=== PATIENT | male | born 2000 | race Caucasian/White ===

== ENCOUNTER 2021-03-20 13:29 | Emergency (ER) | payer OTHER, SELFPAY ==
--- NOTE | 2021-03-20 13:34 | ED.SKABFB ---
HPI - Skin/Abscess/Foreign Bdy General Chief complaint: Skin/Abscess/Foreign Body Stated complaint: abd rash Time Seen by Provider: 03/20/21 13:34 Source: patient and RN notes reviewed History of Present Illness HPI narrative: Patient is a 20-year-old male who presents the urgent care with complaints of a rash to the abdomen. Patient states that a couple weeks ago he noticed a spot on his right wrist. Patient states he has been using an antifungal to the areas with no resolution. Patient states that it does itch but denies of any other symptoms. No other acute complaints. No acute distress noted. Patient aware of the plan of care. Some parts of this dictation were generated by voice recognition software and may contain typographical and/or grammatical inaccuracies. Related Data Allergies Allergy/AdvReac Type Severity Reaction Status Date / Time Sulfa (Sulfonamide Allergy Rash Verified 03/20/21 13:40 Antibiotics) Review of Systems Review of Systems: CONSTITUTIONAL: Denies fever, chills, or sweats. EYES: Denies visual changes, redness, or discharge. ENT: Denies rhinorrhea, congestion, sore throat, or otalgia. CARDIOVASCULAR: Denies chest pain, palpitations, or edema. RESPIRATORY: Denies cough or dyspnea. GASTROINTESTINAL: Denies abdominal pain, nausea, vomiting, or diarrhea. GENITOURINARY: Denies dysuria or hematuria. SKIN: Reports of an itchy rash to the abdomen MUSCULOSKELETAL: Denies back pain, joint pain, or myalgia. NEUROLOGIC: Denies headache, numbness, or weakness. All other systems reviewed are negative, except as documented in HPI. PMFSH Comments At the time of my signature, I reviewed and agree with the nursing past medical, surgical, social, and family history. There is no relevant family history pertinent to the patient complaint. Exam Narrative: GENERAL: This is a well-nourished, well-developed patient, in no apparent distress. HEAD: normocephalic, atraumatic. EYES: PERRL. Sclera clear/white. Vision is grossly intact. EARS: External ears normal NOSE: External nose normal with no obvious nasal discharge, nares without redness, no rhinorrhea. THROAT: Mucous membranes moist NECK: Neck supple CARDIOVASCULAR: Regular rate and rhythm without murmurs, gallops, or rubs. RESPIRATORY: Clear to auscultation. Breath sounds equal bilaterally. No wheezes, rales, or rhonchi. SKIN: Dry plaque-like rash near the bellybutton and to the left of the midline warm, intact with no suspicious lesions or rash, good texture and turgor. NEURO: awake, alert, and oriented to person, place and time. There were no obvious focal neurologic abnormalities. EXTREMITIES: No clubbing, cyanosis, or edema. Course Vital Signs Vital signs: Vital Signs Temperature 98.5 F 03/20/21 13:38 Pulse Rate 57 L 03/20/21 13:38 Respiratory Rate 16 03/20/21 13:38 Blood Pressure 127/77 03/20/21 13:38 Pulse Oximetry 100 03/20/21 13:38 Temperature 98.5 F 03/20/21 13:38 Pulse Rate 57 L 03/20/21 13:38 Respiratory Rate 16 03/20/21 13:38 Blood Pressure 127/77 03/20/21 13:38 Pulse Oximetry 100 03/20/21 13:38 Reviewed MDM - Skin/Abscess/Foreign Bdy MDM Narrative Medical decision making narrative: Advised the patient to use the prescription cream to the affected area. Use a new wash rag after each shower. Complete the oral steroid regimen as prescribed. Be sure to eat and drink with the medication. Use Benadryl as needed for breakthrough itch. Follow-up with your PCP within 2 to 5 days or for worsening or failure to improve. Differential Diagnosis Differential diagnosis: Likely abscess of skin or subcutaneous tissue, viral exanthem, dermatophytosis, urticaria, herpes zoster, eczema and insect bites Critical Care Time Critical Care Time Critical Care Time: No Discharge Plan Discharge Clinical Impression: Dermatitis Patient Disposition: Home, Self-Care Condition: Stable Instructions: Antibiotic Form, De
[2021-03-20 13:38] VITALS: BP 127/77; PULSE 57; RESP 16; TEMP 36.9; O2SAT 100
[2021-03-20 13:53] VITALS: BP 127/77; PULSE 57; RESP 16; TEMP 36.9; O2SAT 100
== END 2021-03-20 14:00 | disposition home or self-care (01) ==
PROVIDERS: Emergency Provider Nurse Practitioner Family
DX: L30.9 Dermatitis, unspecified (principal)
CPT/HCPCS: 99213; G0463